=== PATIENT | female | born 1985 | race Caucasian/White ===

== ENCOUNTER 2022-10-22 19:15 | Emergency (ER) | payer MEDICAID ==
[~2022-10-22] VITALS: Ht 167.6 cm; Wt 82.0 kg
[2022-10-22 19:24] VITALS: BP 132/78
[2022-10-22 21:11] LABS: BASOPHILS % 0.2 % (0.0-2.0); EOSINOPHILS % 0.9 % (0.0-5.0); HEMATOCRIT. 34.4 % (36.0-48.0); HEMOGLOBIN. 11.4 g/dL (12.0-16.0); LYMPHOCYTES % 23.2 % (20.0-50.0); MEAN CORPUSCULAR VOLUME 87.4 fL (81.0-99.0); MEAN PLATELET VOLUME 8.4 fl (7.4-10.4); MONOCYTES % 7.9 % (2.0-8.0); NEUTROPHILS % 67.8 % (40.0-76.0); PLATELET 286 x1000/uL (130-400); RED BLOOD CELL COUNT 3.93 mill/uL (4.2-5.4); RED CELL DISTRIBUTION WIDTH 16.1 % (11.6-14.6)
[2022-10-22 21:25] LABS: CHLORIDE 108 mEq/L (98-107)
[2022-10-22] MEDS ORDERED: LORAZEPAM 1MG TABLET PO ONE (22:00)
== END 2022-10-22 23:30 | disposition home or self-care (01) ==
LOC: ER 19:15
DX: R55 Syncope and collapse (principal); F41.9 Anxiety disorder, unspecified
CPT/HCPCS: 36415; 71045; 80053; 85025; 93005; 99285